=== PATIENT | female | born 1980 | race Caucasian/White ===

== ENCOUNTER → 2020-11-25 13:03 | Outpatient (CLI) | payer OTHER, SELFPAY ==
--- NOTE | ~2020-11-25 | XR_ITS ---
XR lumbar spine 2-3V DATE: 11/25/2020 13:26 INDICATION: Low back pain TECHNIQUE: AP, lateral, coned lateral lumbosacral views COMPARISON: None FINDINGS: There is minimal dextroscoliosis. No fracture or dislocation, bone destruction. The lumbar pedicles are intact. The lumbar and lumbos acral interspaces are preserved. The sacroiliac joints are intact. IUD is noted. IMPRESSION: No significant abnormality Reviewed, dictated and finalized at location B. NCIAL REPORTING ANALYST IMPRESSION: No significant abnormality
== END ==
PROVIDERS: PCP Family Medicine; Visit Provider Nurse Practitioner Family
DX: M54.5 Low back pain (principal)
CPT/HCPCS: 72100

== ENCOUNTER → 2022-06-19 11:12 | Outpatient (CLI) | payer OTHER, SELFPAY ==
--- NOTE | ~2022-06-19 | US_ITS ---
EXAMINATION: US pelvic complete w TV DATE: 06/19/2022 11:42 INDICATION: Irregular bleeding TECHNIQUE: Multiple transabdominal and endovaginal sonographic images of the pelvis were obtained. COMPARISON: None. FINDINGS: The uterus measures 9.2 x 3.0 x 4.7 cm. A 6 mm hypoechoic area of the posterior uterine bod y has the appearance of an intramural fibroid There are multiple cystic areas of the cervix. The endo metrial complex measures 4 mm. The right ovary measures 2.5 x 1.5 x 1.3 cm. The left ovary measures 3 .0 x 1.6 x 1.9 cm. There is normal vascular flow in the ovaries. There is no free fluid in the pelvis . IMPRESSION: 1. Multiple cystic areas of the cervix, likely nabothian cysts. Reviewed, dictated and finalized at location L.
== END ==
LOC: EXPGOSH 11:14 → EXPGOSHRAD 14:46
PROVIDERS: PCP Registered Nurse School; Visit Provider Registered Nurse School
DX: N93.9 Abnormal uterine and vaginal bleeding, unspecified (principal); N88.8 Other specified noninflammatory disorders of cervix uteri
CPT/HCPCS: 76830; 76856

== ENCOUNTER → 2022-08-31 14:58 | Outpatient (CLI) | payer OTHER, SELFPAY ==
--- NOTE | ~2022-08-31 | MM_ITS ---
EXAMINATION: MM screening sergio BI w raquel HISTORY: Screening TECHNIQUE: Craniocaudal and mediolateral oblique 3-D tomosynthesis images were obtained and synthetic 2-D images were generated. CAD analysis was submitted and interpreted. COMPARISON: No prior mammogram is available for comparison at this institution. BREAST PARENCHYMAL COMPOSITION: The breasts are heterogeneously dense, which may obscure small masses FINDINGS: There are asymmetries with possible architectural distortion in the upper outer quadrant of the right breast. There are no suspicious masses, calcifications or architectural distortion in the left breast to suggest malignancy. IMPRESSION: 1. Focal asymmetry in the upper outer quadrant of the right breast. 2. Additional mammographic views and possible breast ultrasound are recommended. BI-RADS Category 0: Incomplete: Needs additional imaging evaluation. Reviewed, dictated and finalized at location A. IMPRESSION: 1. Focal asymmetry in the upper outer quadrant of the right breast. 2. Additional mammographic views and possible breast ultrasound are recommended . BI-RADS Category 0: Incomplete: Needs additional imaging evaluation.
== END ==
PROVIDERS: PCP Family Medicine; Visit Provider Obstetrics & Gynecology
DX: Z12.31 Encounter for screening mammogram for malignant neoplasm of breast (principal); R92.8 Other abnormal and inconclusive findings on diagnostic imaging of breast
CPT/HCPCS: 77063; 77067

== ENCOUNTER → 2022-09-09 09:46 | Outpatient (CLI) | payer OTHER, SELFPAY ==
--- NOTE | ~2022-09-09 | MMUS_ITS ---
EXAMINATION: MM diagnostic sergio RT w raquel, US breast RT limited HISTORY: Follow-up right breast asymmetry TECHNIQUE: Additional 3-D tomosynthesis images of the right breast were performed and synthetic 2-D i mages were generated. CAD analysis was submitted and interpreted. High resolution Limited right breas t ultrasound was performed. COMPARISON: Comparison to multiple prior studies sequentially, with oldest reviewed study dated 02/17/2017. BREAST PARENCHYMAL COMPOSITION: The breasts are heterogeneously dense, which may obscure small masses FINDINGS: MAMMOGRAPHIC FINDINGS: There are no suspicious masses, calcifications or architectural distortion in the right breast to sug gest malignancy. ULTRASOUND: Limited right breast ultrasound: At 10:00, 5 cm from the nipple, there is a 4 mm cyst. At 10:00, 5 cm from the nipple there is an oval hypoechoic mass with parallel orientation, no significant posterior features. IMPRESSION: 1. Probable benign right breast mass at 10:00, 5 cm from the nipple. 2. Recommend 6 month follow-up Limited right breast ultrasound BI-RADS category 3, probably benign findings. Reviewed, dictated and finalized at location A. IMPRESSION: 1. Probable benign right breast mass at 10:00, 5 cm from the nipple. 2. Recommend 6 month follow-up Limited right breast ultrasound BI-RADS category 3, probably benign findings.
== END ==
PROVIDERS: PCP Family Medicine; Visit Provider Obstetrics & Gynecology
DX: R92.8 Other abnormal and inconclusive findings on diagnostic imaging of breast (principal)
CPT/HCPCS: 76642; 77061; 77065; G0279

== ENCOUNTER → 2022-11-03 14:00 | Outpatient (CLI) | payer OTHER, SELFPAY ==
--- NOTE | ~2022-11-03 | MR_ITS ---
EXAMINATION: MR abdomen wo/w con DATE: 11/03/2022 15:25 INDICATION: Liver lesion on outside institution CT . TECHNIQUE: Magnetic resonance imaging (MRI) of the abdomen was performed without and with 10 mL Multi janny intravenous contrast. Sequences included coronal T2-weighted SS-FSE, coronal and axial FS 2D-F IESTA, axial STIR FSE, axial T2-weighted SS-FSE, axial T2-weighted FS SS-FSE, axial diffusion-weighte d SE, axial dual-echo T1-weighted FSPGR, and axial and coronal T1-weighted LAVA. Postcontrast axial T 1-weighted LAVA images were obtained in a time course. Postcontrast coronal T1-weighted LAVA images w ere obtained. COMPARISON: None. FINDINGS: Heart size is normal. No pericardial or pleural effusion. 2.9 x 2.0 cm mass in segment 8 of the liver which demonstrates uniform avid arterial phase enhancement which equilibrates to the surrounding patti er on all of the subsequent images with no evident washout. The mass is otherwise indiscernible from the surrounding liver on the remaining sequences. No other hepatic lesions identified. Gallbladder, s pleen, pancreas, bilateral adrenal glands and kidneys are normal. Visualized portions of bowels are u nremarkable. No pathologically enlarged abdominal lymphadenopathy. Visualized bones are unremarkable with normal marrow signal. IMPRESSION: 1. 2.9 x 2.0 cm mass in segment 8 of the liver discernible only by avid enhancement on the earliest a rterial phase image and is unable to be distinguished from the surrounding liver on the remaining seq uences including 10 minute delayed postcontrast imaging. This pattern of imaging characteristics woul d be most consistent with focal nodular hyperplasia. In the absence of known liver disease or a prima ry malignancy would consider 6 month follow-up postcontrast MRI. If there is known history of maligna ncy or underlying liver disease would consider biopsy which depending on visibility on either ultraso und or CT and given the relatively high location in the dome of the liver could prove very challengin g. Reviewed, dictated and finalized at location A. STERED PUBLIC SURVEYOR IMPRESSION: 1. 2.9 x 2.0 cm mass in segment 8 of the liver discernible only by avid enhance ment on the earliest arterial phase image and is unable to be distinguished fro m the surrounding liver on the remaining sequences including 10 minute delayed postcontrast imaging. This pattern of imaging characteristics would be most con sistent with focal nodular hyperplasia. In the absence of known liver disease o r a primary malignancy would consider 6 month follow-up postcontrast MRI. If th ere is known history of malignancy or underlying liver disease would consider b iopsy which depending on visibility on either ultrasound or CT and given the re latively high location in the dome of the liver could prove very challenging.
== END ==
PROVIDERS: PCP Family Medicine; Visit Provider Nurse Practitioner Family
DX: K76.9 Liver disease, unspecified (principal)
CPT/HCPCS: 74183; A9577

== ENCOUNTER 2022-11-27 01:52 | Outpatient (CLI) | payer OTHER, SELFPAY ==
[2022-11-26 13:23] VITALS: BMI 24.5
--- NOTE | 2022-11-26 13:24 | PC.NURSE ---
Pre Radiology instructions Report to the [facility] on date 11/27/22 AT 0900. Procedure Time: 1100. YOU MAY BE MONITORED AT HOSPITAL FOR UP TO 4 HOURS AFTER YOUR PROCEDURE. 1-2 visitors will be allowed to accompany the patient into the hospital. ?The visitor will be instructed to remain with patient at all times or MAY BE ASKED TO leave the building due to restrictions.? We will allow the visitor to come back to the postoperative area when patient is ready.? NO children visitors allowed at this time. You and your visitor will be asked to self-screen and do not enter if you have any COVID symptoms. A mask is REQUIRED within the hospital. Patients are to have no food or drink 6 hours prior to procedure time Driving will be restricted after the procedure, you must have a person to drive you home. Labs will be drawn in preop area and once reviewed, you will be taken to radiology area for procedure. When the procedure is completed, you will be taken to outpatient where you will be monitored for several hours. You may have one visitor in this area. Other than holding anti-coagulants, patient may take other medication(s) as scheduled. Prior to your appointment date patients are instructed to hold anti-coagulants after discussing with ordering provider to stop. If unable to discontinue anti-coagulants please notify radiologist. ? No aspirin or warfarin (Coumadin) for 7 days prior to the procedure. ? No clopidogrel (Plavix), ticagrelor (Brilinta), prasugrel (Effient) or dabigatran (Pradaxa) for 5 days prior to the procedure. ? No rivaroxaban (Xarelto), apixaban (Eliquis), dipyridamole (Aggrenox or Persantine) or cilostazol (Pletal) for 2 days prior to the procedure. Medications to discontinue per physician: N/A Date to take last dose: N/A Please leave all valuables, including medications, at home the day of procedure. The hospital will not accept responsibility for valuables. Wear comfortable, loose fitting clothing.? Follow any additional instructions given to you from ordering provider. Telephone instructions given to NIKI DOBSON and asked if any additional questions and then verbalized understanding. Patient advised to call scheduling provider office or registration scheduling [phone] if any additional questions.
[2022-11-27] VITALS (10 sets, daily range): BP systolic 100–132; BP diastolic 65–75; PULSE 66–88; RESP 14–18; TEMP 37.4; O2SAT 97–100
--- NOTE | ~2022-11-27 | CT_ITS ---
EXAMINATION: CT abdomen pelvis w con DATE: 11/27/2022 12:20 INDICATION: Right abdominal pain and chest pain after liver biopsy. TECHNIQUE: Computed tomography (CT) of the abdomen and pelvis was performed with 100 mL Omnipaque 350 intravenous contrast. Automated exposure control and iterative reconstruction technique were employe d. The dose-length product was 250.76 mGy-cm. COMPARISON: CT abdomen and pelvis 02/13/2016, abdomen MRI 11/03/2022 FINDINGS: The visualized portions of the lung bases demonstrate mild atelectasis. No pneumothorax or pleural effusion. The heart size is normal. No pericardial effusion. A thin needle tract is seen in t he liver from today's biopsy. There are punctate foci of gas adjacent to the liver, likely introduced by the needle. There is an ill-defined 2 cm slightly hypodense mass in segment VIII of the liver. Th e gallbladder, spleen, pancreas, adrenal glands, and kidneys are normal. There are nabothian cysts in the cervix. There are no dilated loops of bowel. The appendix is normal. There is a small umbilical hernia containing fat. There are no pathologically enlarged lymph nodes. There is no free intraperito arlette fluid. There is physiologic fluid in the pelvis. The bones are unremarkable. IMPRESSION: 1. Thin needle tract in the liver from today's biopsy. 2. Ill-defined 2 cm mass in segment VIII of the liver, most likely focal nodular hyperplasia. Reviewed, dictated and finalized at location A. GARAGE MECHANIC IMPRESSION: 1. Thin needle tract in the liver from today's biopsy. 2. Ill-defined 2 cm mass in segment VIII of the liver, most likely focal nodula r hyperplasia.
--- NOTE | ~2022-11-27 | CT_ITS ---
EXAMINATION: CT bx liver DATE: 11/27/2022 11:45 INDICATION: Liver mass suspicious for focal nodular hyperplasia. TECHNIQUE: The procedure including the risks, benefits, and alternatives was discussed with the patie nt. Risks discussed included bleeding and infection. The patient verbalized understanding of the risk s and agreed to proceed. The skin overlying the liver was prepped and draped in usual sterile fashio n. Anesthetic was administered with 1% lidocaine subcutaneously. A 19 gauge outer needle was advanc ed under CT guidance into the liver. An 20 gauge core biopsy needle was then used to obtain 3 core bi opsy specimens. The mA was adjusted according to patient size. Iterative reconstruction technique was employed. The dose-length product was 352.18 mGy-cm. The needle was removed and the entry site was c leaned and dressed. There were no immediate complications. FINDINGS: CT images demonstrate the outer needle tip in the liver adjacent to the expected area of th e mass identified by arterial phase postcontrast MRI. IMPRESSION: 1. CT-guided core needle biopsy of a liver mass. Reviewed, dictated and finalized at location A. CTOR OF PAYROLL
[2022-11-27] MEDS: SODIUM CHLORIDE 0.9% IV 1,000 ML 30 ML IV CONT (09:22)
[2022-11-27 09:33] LABS: Basophils Percent Auto 0.2 % (0.2-1.2); Eosinophils Absolute Auto 0.1 K/mm3 (0-0.3); Eosinophils Percent Auto 2.8 % (0-4.4); Hematocrit 40.6 % (37.0-47.0); Hemoglobin 12.9 g/dL (12.0-15.0); Immature Granulocyte Absolute 0.01 K/mm3 (0.00-0.031); Immature Granulocyte Percent A 0.2 % (0-0.5); Mean Corpuscular HGB Conc 31.8 g/dl (32-36); Mean Corpuscular Hemoglobin 27.4 pg (26-34); Mean Corpuscular Volume 86.4 fl (80-100); Mean Platelet Volume 8.7 fl (7.4-10.4); Monocytes Absolute Auto 0.4 K/mm3 (0.1-0.6); Neutrophils Absolute Auto 2.7 K/mm3 (1.3-6.7); Neutrophils Percent Auto 54.8 % (45.5-73.1); Platelet Count Result 276 k/mm3 (150-375); Red Cell Distribution Width 12.7 % (11.5-14.5)
[2022-11-27 09:43] LABS: INR 0.9; Prothrombin Time 11.9 Seconds (11.1-14.7)
--- NOTE | 2022-11-27 11:58 | SUR.PHASEII ---
pt presents with increased pain around the surgical site this nurse called dr rivero and he came by and said he wanted a CT. will continue to monitor
--- NOTE | 2022-11-27 12:00 | SUR.PHASEII ---
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
--- NOTE | 2022-11-27 12:14 | SUR.PHASEII ---
pt is in CT
--- NOTE | 2022-11-27 12:23 | SUR.PHASEII ---
pt is back from CT
[2022-11-27] MEDS: oxyCODONE HCL (*CRX) 5 MG TAB IR PO (12:57)
--- NOTE | 2022-11-27 15:37 | SUR.PHASEII ---
PER DR AMAYA PATIENT IS OKAY TO DISCHARGE
== END 2022-11-27 15:42 | disposition home or self-care (01) ==
PROVIDERS: PCP Family Medicine; Referring Provider Nurse Practitioner Family; Visit Provider Radiology Diagnostic Radiology
DX: R16.0 Hepatomegaly, not elsewhere classified (principal)
CPT/HCPCS: 36415; 47000; 74177; 85025; 85610; 88307; 88312; 88313; 88342; A9270; J7030; Q9967

== ENCOUNTER → 2023-03-01 08:43 | Outpatient (CLI) | payer OTHER, SELFPAY ==
--- NOTE | ~2023-03-01 | US_ITS ---
US breast RT limited DATE: 03/01/2023 09:04 INDICATION: Six-month follow-up TECHNIQUE: Real-time imaging and color flow imaging targeted at right breast 10:00 5 cm from nipple COMPARISON: 09/09/2022 Limited right breast ultrasound 09/09/2022 diagnostic right mammogram FINDINGS: There are 2 lesions at 10:00, each of which is diminished in size since 09/09/2022. The lar christiano lesion currently measures approximately 4.4 x 4.9 x 4.7 mm compared to 5.7 x 5.1 x 6.2 mm dimensi on on 09/09/2022. There is some through transmission with posterior enhancement. This is likely a cys t which is diminishing in size. There is a 1.8 x 3.5 x 3.7 mm circumscribed parallel sonolucency at 10:00 5 cm from the nipple as wel l, without posterior shadowing or internal vascularity, likely a small cyst, slightly diminished in s ize as mentioned since 09/09/2022. IMPRESSION: BI-RADS Category 2: Benign findings Recommendation: Routine mammographic screening Reviewed, dictated and finalized at Location A. Reviewed, dictated and finalized at location A.
== END ==
PROVIDERS: PCP Family Medicine
DX: R92.8 Other abnormal and inconclusive findings on diagnostic imaging of breast (principal); N63.11 Unspecified lump in the right breast, upper outer quadrant
CPT/HCPCS: 76642

== ENCOUNTER → 2023-12-10 10:45 | Outpatient (CLI) | payer OTHER, SELFPAY ==
--- NOTE | ~2023-12-10 | MM_ITS ---
EXAMINATION: MM screening sergio BI w raquel HISTORY: Screening TECHNIQUE: Craniocaudal and mediolateral oblique 3-D tomosynthesis images were obtained and synthetic 2-D images were generated. CAD analysis was submitted and interpreted. COMPARISON: Comparison to multiple prior studies sequentially, with oldest reviewed study dated 02/17. BREAST PARENCHYMAL COMPOSITION: The breasts are heterogeneously dense, which may obscure small masses FINDINGS: There is no evidence of suspicious mass, calcification, or architectural distortion to sugg est malignancy in either breast. There has been no suspicious interval change. IMPRESSION: 1. No mammographic evidence of malignancy. 2. Recommend routine screening mammography in one year. BI-RADS Category 1: Negative Reviewed, dictated and finalized at location A. [employer]
== END ==
PROVIDERS: PCP Obstetrics & Gynecology; Visit Provider Obstetrics & Gynecology
DX: Z12.31 Encounter for screening mammogram for malignant neoplasm of breast (principal)
CPT/HCPCS: 77063; 77067

== ENCOUNTER 2024-11-13 09:54 | Outpatient (CLI) | payer OTHER, SELFPAY ==
--- NOTE | ~2024-11-13 | MR_ITS ---
EXAMINATION: MR brain/brain stem wo con DATE: 11/13/2024 10:23 INDICATION: Anesthesia of skin. TECHNIQUE: Magnetic resonance imaging (MRI) of the brain and brainstem was performed without intraven ous contrast. COMPARISON: None. FINDINGS: There is no intracranial hemorrhage, acute infarction, or abnormal intracranial mass lesion . The ventricles are normal in size. The orbits are normal. The paranasal sinuses are clear. The mast oid air cells are normal. IMPRESSION: 1. Normal brain. Reviewed, dictated and finalized at location A. EL ELASTIC OPERATOR LOCKSTITCH IMPRESSION: 1. Normal brain.
== END 2024-11-13 09:55 | disposition home or self-care (01) ==
PROVIDERS: PCP Family Medicine; Visit Provider Nurse Practitioner Adult Health
DX: R20.0 Anesthesia of skin (principal); R20.2 Paresthesia of skin
CPT/HCPCS: 70551